=== PATIENT | male | born 1980 | race Caucasian/White ===

== ENCOUNTER 2023-04-07 14:46 | Emergency (ER) | payer SELFPAY ==
[2023-04-07 15:01] VITALS: BP 130/84; PULSE 71; RESP 18; TEMP 36.4; O2SAT 99; BMI 34.4
[2023-04-07 15:44] LABS: Appearance Urine Clear (Clear); Bilirubin Urine Negative (Negative); Blood Urine Negative (Negative); Color Urine Yellow (Yellow); Glucose Urine Negative (Negative); Ketones Urine Negative (Negative); Leukocyte Esterase Urine Negative (Negative); Nitrite Urine Negative (Negative); Protein Urine 2+ (Negative); Specific Gravity Urine >= 1.030 (1.000-1.030); Urobilinogen Urine 0.2 (0.2-1.0); pH Urine 5.5 (5.0-8.5)
[2023-04-07 15:57] LABS: RBC Urine 0-2 (0-2); WBC Urine 0-2 (0-5)
--- NOTE | 2023-04-07 16:20 | ED_ITS ---
HPI - General Adult General Chief complaint: Back Injury/Pain Stated complaint: Lower back pain Time Seen by Provider: 04/07/23 15:06 History of Present Illness HPI narrative: Patient reports he has stage 2 kidney disease and hypertension, he has had back pain for about a week and a half, he has not felt much like eating although he is able to eat, normal bowel movements, when he moves he has back discomfort. 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 He has had no fevers, chills, COVID symptoms. He has had no blood her in his stool or urine. No constipation or diarrhea. Related Data Home Medications Medication Instructions Recorded Confirmed amlodipine 04/07/23 valsartan 04/07/23 Previous Rx's Medication Instructions Recorded hydrocodone 5 mg-acetaminophen 325 1 tab PO Q8H PRN pain #10 tabs 04/07/23 mg tablet methylprednisolone 4 mg tablets in See Rx Instructions PO .COMPLEX 04/07/23 a dose pack (Medrol (Stone)) #21 ea tramadol 100 mg tablet 100 mg PO TID PRN pain #10 tabs 04/07/23 tramadol 50 mg tablet 50 mg PO Q6H PRN pain #10 tabs 04/07/23 Allergies Allergy/AdvReac Type Severity Reaction Status Date / Time No Known Drug Allergies Allergy Verified 04/07/23 15:06 Review of Systems Status of ROS: Reports: 6 or more systems reviewed and unremarkable except as noted in History and below [facility] Social History Smoking Status: Former smoker Do you use any of these nicotine containing products: None How often do you have a drink containing alcohol: never AUDIT-C Alcohol total score: 0 Non-prescribed substance use: denies use service: No Exam Narrative: Exam Narrative: Objective: Vital signs unremarkable Alert or x3 Limited range of motion low back secondary discomfort is back he has got no fevers chills. He has got no tenderness in his low back, negative straight leg raise bilaterally, normal strength in his lower extremities. Abdomen is benign. Const: Vital Signs, click to edit/add: Vital Signs - 24 hr 04/07/23 15:01 Temperature 97.5 F L Pulse Rate [Pulse Oximeter] 71 Respiratory Rate 18 Blood Pressure [Ri ght Upper Arm] 130/84 Pulse Oximetry 99 Oxygen Delivery Me thod Room Air Course Vital Signs Vital signs: Initial Vital Signs Temperature 97.5 F L 04/07/23 15:01 Temperature Source Temporal Artery Scan 04/07/23 15:01 Pulse Rate 71 04/07/23 15:01 Respiratory Rate 18 04/07/23 15:01 Blood Pressure 130/84 04/07/23 15:01 Blood Pressure Mean 99 04/07/23 15:01 Blood Pressure Position Sitting 04/07/23 15:01 Pulse Oximetry 99 04/07/23 15:01 Oxygen Delivery Method Room Air 04/07/23 15:01 Vital Signs Temperature 97.5 F L 04/07/23 15:01 Pulse Rate 71 04/07/23 15:01 Respiratory Rate 18 04/07/23 15:01 Blood Pressure 130/84 04/07/23 15:01 Pulse Oximetry 99 04/07/23 15:01 Oxygen Delivery Method Room Air 04/07/23 15:01 Temperature 97.5 F L 04/07/23 15:01 Pulse Rate 71 04/07/23 15:01 Respiratory Rate 18 04/07/23 15:01 Blood Pressure 130/84 04/07/23 15:01 Pulse Oximetry 99 04/07/23 15:01 Oxygen Delivery Method Room Air 04/07/23 15:01 Medical Decision Making MDM Narrative Medical decision making narrative: [age] year white male with negative urinalysis other than for some protein consistent with stage 2 kidney disease, he has evidence for mechanical low back pain, muscular pain. He has no evidence of radicular symptoms, or cauda equina syndrome. At this point I think be gaffney to cover him with pain medication will give him morphine 7.5 mg IM, will give a Medrol Dosepak and have him use [place] as needed over the next couple of days 10 will be prescribed. He should be off work until Wednesday, ice the back in a regular basis and recheck with primary care doctor in 5-7 days. Return to ED sooner problems concerns worsening. Discussed the need for additional workup if continued symptoms. Lab Data Labs: Lab Results 04/07/23 Range/Units 15:10 Urine Color Yellow (Yellow) Urine Appearance Clear (Clear) Urine pH 5.5 (5.0-8.5) Ur Specific [place] >= 1.030 (1.000-1.030) Urine Protein 2+ A (Negative) Urine Glucose (UA) Negative (Negative) Urine Ketones Negative (Negative) Urine Blood Negative (Negative) Urine Nitrite Negative (Negative) Urine Bilirubin Negative (Negative) Urine Urobilinogen 0.2 (0.2-1.0) Ur Leukocyte Esterase Negative (Negative) Urine RBC 0-2 (0-2) Urine WBC 0-2 (0-5) Ur Squamous Epith Cells None (None-Few) Urine Bacteria None (None) Discharge Plan Discharge Clinical Impression: Strain of lumbar region Patient Disposition: Home w/ Parent or Adult Condition: Stable Additional Instructions: Light activity, stretching, off work until Wednesday, ice aggressively, Medrol Dosepak and Ultram as needed. Follow up with primary care doctor in 5-7 days. Activity Level: Light activity Discharge Diet: Regular Prescriptions: New methylprednisolone [Medrol (Stone)] 4 mg tablets,dose pack See Rx Instructions .ROUTE .COMPLEX Qty: 21 0RF Rx Instructions: orally per package directions tramadol 50 mg tablet 50 mg PO Q6H PRN (Reason: pain) Qty: 10 0RF tramadol 100 mg tablet 100 mg PO TID PRN (Reason: pain) Qty: 10 0RF hydrocodone-acetaminophen 5-325 mg tablet 1 tab PO Q8H PRN (Reason: pain) Qty: 10 0RF No Action amlodipine valsartan Stand Alone Forms: MyHealth Info Instructions
[2023-04-07] MEDS: MORPHINE 10 MG/ML inj 7.5 MG IM (16:30)
== END 2023-04-07 17:49 | disposition home or self-care (01) ==
PROVIDERS: Emergency Provider Family Medicine
DX: S39.012A Strain of muscle, fascia and tendon of lower back, initial encounter (principal)
CPT/HCPCS: 81001; 96372; 99283; 99284; J2270